=== PATIENT | female | born 1940 | race African-American/Black ===

== ENCOUNTER 2020-01-10 05:42 | Emergency (ER) | payer OTHER ==
[~2020-01-10] VITALS: Ht 172.7 cm; Wt 87.0 kg
[2020-01-10 07:06] LABS: BASOPHILS % 0.9 % (0.0-2.0); EOSINOPHILS % 0.8 % (0.0-5.0); HEMATOCRIT. 41.8 % (36.0-48.0); HEMOGLOBIN. 14.2 g/dL (12.0-16.0); LYMPHOCYTES % 40.2 % (20.0-50.0); MEAN CORPUSCULAR HEMOGLOBIN 32.2 pg (28.0-32.0); MEAN PLATELET VOLUME 7.6 fl (7.4-10.4); MONOCYTES % 8.1 % (2.0-8.0); PLATELET 369 x1000/uL (130-400); RED CELL DISTRIBUTION WIDTH 13.7 % (11.6-14.6)
[2020-01-10 07:12] LABS: CHLORIDE 107 mEq/L (98-107)
[2020-01-10 09:00] VITALS: BP 173/61
== END 2020-01-10 09:14 | disposition home or self-care (01) ==
LOC: ER 05:42
DX: R55 Syncope and collapse (principal); M79.18 Myalgia, other site; I10 Essential (primary) hypertension; E78.00 Pure hypercholesterolemia, unspecified; I25.2 Old myocardial infarction; Z85.3 Personal history of malignant neoplasm of breast
CPT/HCPCS: 36415; 71045; 73600; 80053; 83880; 84484; 85025; 99284